=== PATIENT | male | born 1970 | race Caucasian/White ===

== ENCOUNTER 2016-10-07 10:50 | Emergency (ER) | payer BC ==
[~2016-10-07 10:50] MED LIST: ADULT LOW DOSE81 MG PO; AMARYL 2MG TABLE2 MG PO; DEPAKOTE500 MG PO; FISH OIL DR 1,1 EAC1 PO; ZESTORETIC 20-1 EAC1 PO
== END 2016-10-07 12:20 | disposition home or self-care (01) ==
LOC: ER1 10:50
DX: J36 Peritonsillar abscess (principal); G40.909 Epilepsy, unspecified, not intractable, without status epilepticus; Z79.899 Other long term (current) drug therapy
CPT/HCPCS: 96372; 99282

== ENCOUNTER 2016-10-16 22:13 | Emergency (ER) | payer BC | END 2016-10-17 00:25 | disposition home or self-care (01) | LOC: ER1 22:13 | DX: R53.1 Weakness (principal); J36 Peritonsillar abscess; G40.909 Epilepsy, unspecified, not intractable, without status epilepticus; Z79.899 Other long term (current) drug therapy | CPT/HCPCS: 36415; 99284 ==